=== PATIENT | male | born 1955 | race Asian ===

== ENCOUNTER 2020-04-01 07:17 | Inpatient (IN) | payer BC ==
[2020-04-01] VITALS (8 sets, daily range): BP systolic 100–114; BP diastolic 43–65
[~2020-04-01] VITALS: Ht 177.8 cm; Wt 73.3 kg
[2020-04-01] MEDS ORDERED: ALLO100T30 PO ×2 (07:29→17:47)
[2020-04-01] MEDS ORDERED: PLEASE ENTER ALLERGIES MC SCH (07:30)
--- NOTE | 2020-04-01 07:40 | NUR ---
TRANSFER FROM [place] [facility] FOR GI BLEED STARTING TWO DAYS AGO WITH TWO EPISODES OF HIMOPTYSIS. REPORTS DARK TARRY STOOL. HX GOUT. WAS GIVEN TXA 1 GM, PROTONIX, OCTREOTIDE 50 MCG, ROCEPHIN, VIT K 10 MG (INR 1.9), ATIVAN. PT HAS 3-4 DRINKS A DAY. TWO PRBC'S HGB 7.9 & HCT 24.7. PT IS CALM A&OX4 REPORTS NOT PAIN AT THIS TIME. AT [facility]. LAB IN ROOM. [facility] REQUEST SENT FOR MEDS. Addendum: 04/01/20 at 0748 by [email or web address] TRANSFER FROM [place] [facility] FOR GI BLEED STARTING TWO DAYS AGO WITH TWO EPISODES OF HIMOPTYSIS. REPORTS DARK TARRY STOOL. HX GOUT. WAS GIVEN TXA 1 GM, PROTONIX, OCTREOTIDE 50 MCG, ROCEPHIN, VIT K 10 MG (INR 1.9), ATIVAN. PT HAS 3-4 DRINKS A DAY. TWO PRBC'S HGB 7.9 & HCT 24.7. PT IS CALM A&OX4 REPORTS NOT PAIN AT THIS TIME. AT [facility]. LAB IN ROOM. [facility] REQUEST SENT FOR MEDS.
[2020-04-01 07:48] LABS: BASOPHILS % (AUTO) 1 % (0-1); EOSINOPHILS % (AUTO) 0 % (1-7); LYMPHOCYTES % (AUTO) 23 % (22-44); MEAN CORPUSCULAR HEMOGLOBIN 33.6 pg (27.5-34.5); MEAN CORPUSCULAR HGB CONC 34.1 g/dL (33.2-36.2); MEAN PLATELET VOLUME 9.1 fL (7.4-10.4); MONOCYTES % (AUTO) 10 % (2-9); NEUTROPHILS % (AUTO) 65 % (42-75); PLATELET COUNT 106 x10^3/uL (130-400); RED BLOOD COUNT 2.47 x10^6/uL (4.38-5.82); RED CELL DISTRIBUTION WIDTH 14.7 % (9.4-14.8)
[2020-04-01] MEDS ORDERED: AMLO-211 PO (07:48)
--- NOTE | 2020-04-01 07:48 | NUR ---
PT GIVEN 2L NS AT [facility]
[2020-04-01 07:51] LABS: MD NO
[2020-04-01 07:59] LABS: INTERNATIONAL NORMALIZED RATIO 1.96 (0.93-1.1); PROTHROMBIN TIME 20.6 Seconds (9.6-11.5)
[2020-04-01 08:00] LABS: ALANINE AMINOTRANSFERASE 23 U/L (12-78); ANION GAP 8 mmol/L (5-15); CALCIUM 7.6 mg/dL (8.5-10.1); CHLORIDE 112 mmol/L (98-107); CREATININE 1.49 mg/dL (0.7-1.3)
[2020-04-01 08:02] LABS: ALKALINE PHOSPHATASE 57 U/L (45-117); TOTAL PROTEIN 5.7 g/dL (6.4-8.2)
[2020-04-01] MEDS: PANTOPRAZOLE 80 MG in SODIUM CHLORIDE 0.9% 100 ML IV SCH ×5 (08:04→17:54)
--- NOTE | 2020-04-01 08:04 | NUR ---
Jd.Estephania CALLED @[phone]
[2020-04-01] MEDS: OCTREOTIDE 500 MCG in SODIUM CHLORIDE 0.9% 99 ML IV PRN ×2 (08:05→12:41)
--- NOTE | 2020-04-01 09:16 | NUR ---
MD HUMPHREYS NOTIFIED ABOUT PT'S BP, NS 500ML GIVEN PER ORDER
[2020-04-01] MEDS ORDERED: SODIUM CHLORIDE 0.9%, 500ML IVBOLUS ONE (09:30)
[2020-04-01] MEDS ORDERED: ONDANSETRON 2MG/ML, 2ML IV PRN (09:30)
[2020-04-01] MEDS ORDERED: SODIUM CHLORIDE 0.9% 1,000 ML IV SCH (09:30)
[2020-04-01] MEDS ORDERED: OMNIPAQUE 350 MG/ML, 100ML BOTTLE ONE (11:02)
--- NOTE | 2020-04-01 14:04 | NUR ---
LARGE STOOL OUT (BLACK TARRY). PT CLEANED AND PUT IN HOSPITAL BED
[2020-04-01] MEDS ORDERED: AMLO-210 PO (17:46)
[2020-04-01] MEDS: OCTREOTIDE 500 MCG in SODIUM CHLORIDE 0.9% 99 ML IV SCH (23:25)
[2020-04-02 00:32] VITALS: BP 118/66
[2020-04-02] MEDS: PANTOPRAZOLE 80 MG in SODIUM CHLORIDE 0.9% 100 ML IV SCH ×2 (02:00→15:40)
[2020-04-02 03:39] LABS: BASOPHILS % (AUTO) 1 % (0-1); EOSINOPHILS % (AUTO) 3 % (1-7); LYMPHOCYTES % (AUTO) 26 % (22-44); MEAN PLATELET VOLUME 8.9 fL (7.4-10.4); MONOCYTES % (AUTO) 12 % (2-9); NEUTROPHILS % (AUTO) 59 % (42-75); PLATELET COUNT 104 x10^3/uL (130-400); RED BLOOD COUNT 2.63 x10^6/uL (4.38-5.82); RED CELL DISTRIBUTION WIDTH 15.4 % (9.4-14.8)
[2020-04-02 03:42] LABS: MD NO
[2020-04-02 03:52] LABS: ALANINE AMINOTRANSFERASE 30 U/L (12-78); ALBUMIN 2.1 g/dL (3.4-5.0); ANION GAP 5 mmol/L (5-15); CALCIUM 7.7 mg/dL (8.5-10.1); CHLORIDE 120 mmol/L (98-107); CREATININE 1.19 mg/dL (0.7-1.3)
[2020-04-02 03:54] LABS: ALKALINE PHOSPHATASE 56 U/L (45-117); BILIRUBIN,TOTAL 5.1 mg/dL (0.2-1.0); TOTAL PROTEIN 5.5 g/dL (6.4-8.2)
[2020-04-02 07:49] VITALS: BP 129/62
[2020-04-02] MEDS: OCTREOTIDE 500 MCG in SODIUM CHLORIDE 0.9% 99 ML IV SCH ×2 (07:51→18:52)
[2020-04-02] MEDS ORDERED: MAGNESIUM SULFATE PMX 2GM/50ML 50 ML IV ONE (08:00)
[2020-04-02] MEDS ORDERED: POTASSIUM CHLORIDE 40 MEQ in SODIUM CHLORIDE 0.9% 500 ML IV ONE (08:00)
[2020-04-02] MEDS ORDERED: DEXAMETHASONE 4 MG/ML, 1ML ONE (10:11)
[2020-04-02] MEDS ORDERED: CEFAZOLIN 1,000 MG ONE (10:11)
[2020-04-02] MEDS ORDERED: LIDOCAINE 1%, 20ML ONE (10:11)
[2020-04-02] MEDS ORDERED: ONDANSETRON 2MG/ML, 2ML ONE (10:11)
[2020-04-02] MEDS ORDERED: KETOROLAC 30 MG/1 ML ONE (10:11)
[2020-04-02] MEDS ORDERED: PHENYLEPHRINE 10 MG/ML ONE (10:11)
[2020-04-02] MEDS ORDERED: OXYTOCIN 10 UNITS/ML, 1ML ONE (10:11)
[2020-04-02] MEDS ORDERED: CHLORHEXIDINE 15 ML UDC ONE (11:50)
[2020-04-02] MEDS ORDERED: LABETALOL 5MG/ML, 20ML IV PRN (12:30)
[2020-04-02] MEDS ORDERED: ALBUTEROL SULFATE 2.5 MG/3 ML NPPB PRN (12:30)
[2020-04-02] MEDS ORDERED: DIPHENHYDRAMINE 50 MG/ML, 1ML IVPush PRN ×2 (12:30)
[2020-04-02] MEDS ORDERED: ONDANSETRON 2MG/ML, 2ML IVPush PRN (12:30)
[2020-04-02] MEDS ORDERED: hydrALAzine 20 MG/ML, 1ML IV PRN (12:30)
[2020-04-02] MEDS ORDERED: PROMETHAZINE 12.5 MG SUPP PR PRN (12:30)
[2020-04-02] MEDS ORDERED: EPHEDRINE 50 MG/ML, 1ML IVPush PRN (12:30)
[2020-04-02] MEDS ORDERED: OXYcodone 5 MG/5 ML ORAL.SOL UDC PO PRN (12:30)
[2020-04-02] MEDS ORDERED: HYDROmorphone 1 MG/ML, 1ML INJ IVPush PRN (12:30)
[2020-04-02] MEDS ORDERED: FENTANYL PF 100 MCG/2ML IV PRN (12:30)
[2020-04-02] MEDS ORDERED: MEPERIDINE/PF 25MG/0.5ML IVPush PRN (12:30)
[2020-04-02] MEDS ORDERED: MIDAZOLAM 1 MG/ML, 2ML IV PRN (12:30)
[2020-04-02] MEDS ORDERED: PROMETHAZINE 25 MG/ML, 1ML IVPush PRN (12:30)
[2020-04-02] MEDS ORDERED: DIAZEPAM 5 MG/ML, 2ML IVPush PRN (12:30)
[2020-04-02] MEDS: SODIUM CHLORIDE 0.9% 1,000 ML IV SCH ×2 (14:26→23:06)
[2020-04-02 15:03] VITALS: BP 101/64
[2020-04-02] MEDS: CEFTRIAXONE PMX 1GM/50ML 50 ML IV SCH (15:42)
[2020-04-02 21:00] VITALS: BP 116/69
[2020-04-03 02:00] VITALS: BP 112/74
[2020-04-03] MEDS: PANTOPRAZOLE 80 MG in SODIUM CHLORIDE 0.9% 100 ML IV SCH ×3 (02:10→22:23)
[2020-04-03 03:50] LABS: ANION GAP 6 mmol/L (5-15); BASOPHILS % (AUTO) 1 % (0-1); CALCIUM 7.3 mg/dL (8.5-10.1); CHLORIDE 113 mmol/L (98-107); EOSINOPHILS % (AUTO) 6 % (1-7); LYMPHOCYTES % (AUTO) 28 % (22-44); MEAN CORPUSCULAR HEMOGLOBIN 33.3 pg (27.5-34.5); MEAN CORPUSCULAR HGB CONC 33.8 g/dL (33.2-36.2); MEAN PLATELET VOLUME 8.5 fL (7.4-10.4); MONOCYTES % (AUTO) 12 % (2-9); NEUTROPHILS % (AUTO) 54 % (42-75); PLATELET COUNT 94 x10^3/uL (130-400); RED BLOOD COUNT 2.56 x10^6/uL (4.38-5.82); RED CELL DISTRIBUTION WIDTH 16.2 % (9.4-14.8)
[2020-04-03 03:53] LABS: ALANINE AMINOTRANSFERASE 38 U/L (12-78); ALKALINE PHOSPHATASE 60 U/L (45-117); BILIRUBIN,TOTAL 4.8 mg/dL (0.2-1.0); CREATININE 1.03 mg/dL (0.7-1.3); TOTAL PROTEIN 5.9 g/dL (6.4-8.2)
[2020-04-03 04:20] LABS: MD SCAN
[2020-04-03] MEDS: OCTREOTIDE 500 MCG in SODIUM CHLORIDE 0.9% 99 ML IV SCH ×2 (06:20→18:37)
[2020-04-03] MEDS ORDERED: MAGNESIUM SULFATE PMX 2GM/50ML 50 ML IV ONE (07:00)
[2020-04-03 07:24] VITALS: BP 109/65
[2020-04-03] MEDS ORDERED: POTASSIUM CHLORIDE 20 MEQ in SODIUM CHLORIDE 0.9% 250 ML IV ONE (07:30)
[2020-04-03] MEDS: K-PHOS NEUTRAL 250MG TAB PO SCH ×2 (08:44→21:00)
[2020-04-03] MEDS: SODIUM CHLORIDE 0.9% 1,000 ML IV SCH ×2 (08:44→18:42)
[2020-04-03 13:01] VITALS: BP 108/67
[2020-04-03 15:11] LABS: ANA SCREEN NEGATIVE (Negative)
[2020-04-03] MEDS: CEFTRIAXONE PMX 1GM/50ML 50 ML IV SCH (15:40)
[2020-04-03 19:36] VITALS: BP 119/67
[2020-04-04] MEDS: SODIUM CHLORIDE 0.9% 1,000 ML IV SCH ×3 (01:59→19:30)
[2020-04-04] MEDS: OCTREOTIDE 500 MCG in SODIUM CHLORIDE 0.9% 99 ML IV SCH ×2 (02:53→13:17)
[2020-04-04 02:57] VITALS: BP 111/65
[2020-04-04 04:15] LABS: BASOPHILS % (AUTO) 1 % (0-1); EOSINOPHILS % (AUTO) 7 % (1-7); LYMPHOCYTES % (AUTO) 27 % (22-44); MEAN CORPUSCULAR HEMOGLOBIN 33.5 pg (27.5-34.5); MEAN CORPUSCULAR HGB CONC 33.7 g/dL (33.2-36.2); MEAN PLATELET VOLUME 8.6 fL (7.4-10.4); MONOCYTES % (AUTO) 13 % (2-9); NEUTROPHILS % (AUTO) 53 % (42-75); PLATELET COUNT 105 x10^3/uL (130-400); RED BLOOD COUNT 2.66 x10^6/uL (4.38-5.82); RED CELL DISTRIBUTION WIDTH 15.4 % (9.4-14.8)
[2020-04-04 04:18] LABS: MD NO
[2020-04-04 07:53] VITALS: BP 112/64
[2020-04-04] MEDS: PANTOPRAZOLE 80 MG in SODIUM CHLORIDE 0.9% 100 ML IV SCH ×2 (08:33→17:59)
[2020-04-04 08:47] LABS: INTERNATIONAL NORMALIZED RATIO 1.64 (0.93-1.1); PROTHROMBIN TIME 17.3 Seconds (9.6-11.5)
[2020-04-04] MEDS: K-PHOS NEUTRAL 250MG TAB PO SCH ×3 (09:00→20:52)
[2020-04-04] MEDS ORDERED: LIDOCAINE 1%, 10ML ONE (10:00)
[2020-04-04] MEDS ORDERED: FLUMAZENIL 0.1 MG/1 ML, 5ML ONE (10:11)
[2020-04-04] MEDS ORDERED: MIDAZOLAM 1 MG/ML, 5ML ONE (10:11)
[2020-04-04] MEDS ORDERED: FENTANYL PF 100 MCG/2ML ONE (10:11)
[2020-04-04] MEDS ORDERED: NALOXONE 1 MG/ML, 2ML ONE (10:12)
[2020-04-04 11:07] LABS: ANION GAP 7 mmol/L (5-15); CALCIUM 7.2 mg/dL (8.5-10.1); CHLORIDE 114 mmol/L (98-107)
[2020-04-04 11:08] LABS: BILIRUBIN,TOTAL 5.2 mg/dL (0.2-1.0)
[2020-04-04 11:09] LABS: ALANINE AMINOTRANSFERASE 43 U/L (12-78); ALBUMIN 1.8 g/dL (3.4-5.0); ALKALINE PHOSPHATASE 61 U/L (45-117); TOTAL PROTEIN 5.5 g/dL (6.4-8.2)
[2020-04-04 13:27] VITALS: BP 108/64
[2020-04-04] MEDS ORDERED: MAGNESIUM SULFATE PMX 2GM/50ML 50 ML IV ONE (14:30)
[2020-04-04] MEDS: CEFTRIAXONE PMX 1GM/50ML 50 ML IV SCH (15:17)
[2020-04-04 20:01] VITALS: BP 112/66
[2020-04-05] MEDS: OCTREOTIDE 500 MCG in SODIUM CHLORIDE 0.9% 99 ML IV SCH ×2 (00:28→10:59)
[2020-04-05 00:38] VITALS: BP 132/75
[2020-04-05 03:12] LABS: BASOPHILS % (AUTO) 1 % (0-1); EOSINOPHILS % (AUTO) 4 % (1-7); LYMPHOCYTES % (AUTO) 17 % (22-44); MEAN CORPUSCULAR HEMOGLOBIN 33.5 pg (27.5-34.5); MEAN CORPUSCULAR HGB CONC 33.5 g/dL (33.2-36.2); MEAN PLATELET VOLUME 8.4 fL (7.4-10.4); MONOCYTES % (AUTO) 14 % (2-9); NEUTROPHILS % (AUTO) 65 % (42-75); PLATELET COUNT 99 x10^3/uL (130-400); RED BLOOD COUNT 2.82 x10^6/uL (4.38-5.82); RED CELL DISTRIBUTION WIDTH 15.8 % (9.4-14.8)
[2020-04-05 03:13] LABS: MD NO
[2020-04-05] MEDS: SODIUM CHLORIDE 0.9% 1,000 ML IV SCH (03:27)
[2020-04-05 03:52] LABS: ALANINE AMINOTRANSFERASE 47 U/L (12-78); ALKALINE PHOSPHATASE 69 U/L (45-117); ANION GAP 7 mmol/L (5-15); BILIRUBIN,TOTAL 4.9 mg/dL (0.2-1.0); CHLORIDE 108 mmol/L (98-107); TOTAL PROTEIN 5.8 g/dL (6.4-8.2)
[2020-04-05 03:53] LABS: ALBUMIN 1.9 g/dL (3.4-5.0)
[2020-04-05] MEDS ORDERED: POTASSIUM CHLORIDE 20 MEQ TAB.ER.PRT PO ONE (04:00)
[2020-04-05] MEDS: PANTOPRAZOLE 80 MG in SODIUM CHLORIDE 0.9% 100 ML IV SCH ×2 (04:16→14:00)
[2020-04-05 07:57] VITALS: BP 110/54
[2020-04-05] MEDS ORDERED: ACETAMINOPHEN 325 MG TABLET PO PRN (08:30)
[2020-04-05] MEDS: K-PHOS NEUTRAL 250MG TAB PO SCH (10:01)
[2020-04-05 12:55] VITALS: BP 102/57
[2020-04-05] MEDS: CEFTRIAXONE PMX 1GM/50ML 50 ML IV SCH (14:30)
[2020-04-05] MEDS ORDERED: PANT40TA3 PO (14:36)
[2020-04-05] MEDS ORDERED: POTA20TA6 PO (14:36)
== END 2020-04-05 17:00 | disposition home or self-care (01) | DRG 270 ==
LOC: ED 07:52 → EDIP 09:59 → 5SO 17:13 → DCLOUNGE 04-05 16:48
PROVIDERS: ADMIT Family Medicine; ATTEND Family Medicine
PROC: 30233N1 Transfusion of Nonautologous Red Blood Cells into Peripheral Vein, Percutaneous Approach (ICD-10-PCS; 2020-04-01)
PROC: 30233K1 Transfusion of Nonautologous Frozen Plasma into Peripheral Vein, Percutaneous Approach (ICD-10-PCS; 2020-04-01)
PROC: 0DJ08ZZ Inspection of Upper Intestinal Tract, Via Natural or Artificial Opening Endoscopic (ICD-10-PCS; principal; 2020-04-02 11:00)
PROC: 06183J4 Bypass Portal Vein to Hepatic Vein with Synthetic Substitute, Percutaneous Approach (ICD-10-PCS; 2020-04-05)
DX: I86.4 Gastric varices (principal); N17.0 Acute kidney failure with tubular necrosis; B19.10 Unspecified viral hepatitis B without hepatic coma; D62 Acute posthemorrhagic anemia; D68.9 Coagulation defect, unspecified; K76.6 Portal hypertension; K92.0 Hematemesis; I85.00 Esophageal varices without bleeding; K92.2 Gastrointestinal hemorrhage, unspecified; D69.6 Thrombocytopenia, unspecified; E83.39 Other disorders of phosphorus metabolism; E83.42 Hypomagnesemia; E87.6 Hypokalemia; F10.20 Alcohol dependence, uncomplicated; Z20.828 Contact with and (suspected) exposure to other viral communicable diseases; I10 Essential (primary) hypertension; I71.4 Abdominal aortic aneurysm, without rupture; K31.89 Other diseases of stomach and duodenum; K72.90 Hepatic failure, unspecified without coma; M10.9 Gout, unspecified; M06.9 Rheumatoid arthritis, unspecified
CPT/HCPCS: 36415; 96360; 96361; 99285; J3490; 37182; 37241; 74177; 76937; 80053; 83690; 83735; 84100; 85014; 85018; 85025; 85610; 86038; 86705; 86706; 86803; 86850; 86900; 86923; 87340; 87635; 93005; 99156; 99157; C1725; G0378; J0690; J0696; J1100; J1885; J2250; J2354; J2405; J3010; J3480; Q9967; C1751; C1769; C1876; C1894; C9113; J2310; J2370; J2590; J3475; J7030; J7040; J7050; P9016; P9017